=== PATIENT | male | born 1935 | race Caucasian/White ===

== ENCOUNTER 2024-12-12 05:29 | Day surgery (SDC) | payer MEDICAID ==
[~2024-12-12 05:29] MED LIST: CHOL25TA4 PO; KETOROLAC TROMETHAMINE 0.5% 5 ML OPHTHALMIC SOLUTION ONE; MOXIFLOXACIN HCL 0.5% 3 ML OPHTHALMIC SOLUTION ONE; OS500 PO; PHENYLEPHRINE HCL 2.5% 2 ML OPHTHALMIC SOLUTION ONE; RINGERS SOLUTION,LACTATED 500 ML IV ONE; TRAZ-257 PO; TROPICAMIDE 1% 2 ML OPHTHALMIC SOLUTION ONE
[2024-12-12] MEDS ORDERED: CHONDR SULF A SOD/HYALURONATE 1.05 ML KIT IO ONE (05:30)
[2024-12-12] MEDS ORDERED: MIDAZOLAM HCL 2 MG/2 ML VIAL ONE (05:52)
[2024-12-12] MEDS: RINGERS SOLUTION,LACTATED 500 ML IV ONE (06:42)
[2024-12-12] MEDS: TROPICAMIDE 1% 2 ML OPHTHALMIC SOLUTION OS SCH (07:04)
[2024-12-12] MEDS: PHENYLEPHRINE HCL 2.5% 2 ML OPHTHALMIC SOLUTION OS SCH (07:04)
[2024-12-12] MEDS: KETOROLAC TROMETHAMINE 0.5% 5 ML OPHTHALMIC SOLUTION OS SCH (07:04)
[2024-12-12] MEDS: MOXIFLOXACIN HCL 0.5% 3 ML OPHTHALMIC SOLUTION OS SCH (07:05)
[2024-12-12] MEDS: TETRACAINE HCL/PF 0.5% 4 ML OPHTHALMIC SOLUTION ONE (07:35)
[2024-12-12] MEDS: EPINEPHrine 1:1,000 [1 MG/ML] VIAL ONE (07:50)
[2024-12-12] MEDS: LIDOCAINE/PF 1% 2 ML VIAL ONE (07:50)
[2024-12-12] MEDS: BALANCED SALT 15 ML OPHTHALMIC IRRIG.SOLN ONE (07:50)
[2024-12-12] MEDS: POVIDONE-IODINE 5% 30 ML OPHTHALMIC SOLUTION ONE (07:51)
== END 2024-12-12 11:00 | disposition home or self-care (01) ==
LOC: SURGERY 05:29
PROVIDERS: ATTEND Ophthalmology
DX: H25.12 Age-related nuclear cataract, left eye (principal); I25.2 Old myocardial infarction; E78.5 Hyperlipidemia, unspecified; M81.0 Age-related osteoporosis without current pathological fracture; N18.2 Chronic kidney disease, stage 2 (mild); G47.00 Insomnia, unspecified; I25.10 Atherosclerotic heart disease of native coronary artery without angina pectoris
CPT/HCPCS: 66984; 93005; J7321; J0171; J3490; J2250; J7120; V2632